=== PATIENT | male | born 1975 | race Hispanic/Latino ===

== ENCOUNTER 2022-07-19 09:53 | Emergency (ER) | payer OTHER, SELFPAY ==
[~2022-07-19 09:53] MED LIST: Iopamidol 370 76% 100 ML VIAL ONE
[2022-07-19 10:31] LABS: #Basophils 0.1 10x3/uL (0.0-0.2); #Eosinphils 0.1 10x3/uL (0.0-0.5); #Monocytes 0.5 10x3/uL (0.0-1.1); #Neutrophils 6.1 10x3/uL (1.5-8.4); %Basophils 1.2 % (0.0-2.0); %Eosinophils 1.4 % (0.0-6.0); %Lymphocytes 25.5 % (18.0-47.0); %Neutrophils 65.3 % (40.0-75.0); Hemoglobin 15.7 g/dL (13.5-17.5); Mean Corpuscular HGB CONC 35.2 g/dL (32.0-36.0); Mean Corpuscular Hemoglobin 31.3 pg (27.0-33.0); Mean Corpuscular Volume 88.8 fl (81.2-95.1); Mean Platelet Volume 9.4 fl (7.4-10.4); Platelet Count 230 10x3/uL (150-450); RBC Distribution Width 11.9 % (11.5-14.5); Red Blood Cell (RBC) Count 5.02 10x6/uL (4.32-5.72); White Blood Cell (WBC) Count 9.3 10x3/uL (3.5-10.5)
[2022-07-19 11:01] LABS: ALT (SGPT) 92 U/L (8-55); AST (SGOT) 165 U/L (5-34); Albumin 4.4 g/dL (3.5-5.0); Alkaline Phosphatase 72 U/L (40-110); Anion Gap 17 mmol/L (10-20); BUN (Urea Nitrogen) 7 mg/dL (8.9-20.6); Bilirubin, Total 0.5 mg/dL (0.2-1.2); Calc. Creatinine Clearance 0 mL/min (70-130); Calcium 8.8 mg/dL (7.8-10.44); Carbon Dioxide 16 mmol/L (22-29); Chloride 107 mmol/L (98-107); Estimated GFR 108; Globulin 3.5 g/dL (2.4-3.5); Glucose 207 mg/dL (70-105); Potassium 4.1 mmol/L (3.5-5.1); Protein, Total 7.9 g/dL (6.0-8.3); Sodium 136 mmol/L (136-145)
[2022-07-19] MEDS ORDERED: Morphine 4 MG/ML VIAL ONE (11:15)
[2022-07-19] MEDS ORDERED: Ondansetron PF 4 MG/2 ML Vial ONE (11:15)
[2022-07-19] MEDS ORDERED: Ketorolac Tromethamine 30 MG/ML VIAL ONE (11:45)
[2022-07-19 11:54] LABS: Bilirubin Neg (Negative); Blood, Urine 250 (Negative); Clarity Clear (Clear); Glucose, Urine (Dipstick) 250 mg/dL (Negative); Ketone, Urine Negative (Negative); Leukocyte Negative (Negative); Nitrite Negative (Negative); Protein, Urine (Dipstick) 30 mg/dl (Neg-Trace); Specific Gravity, Urine 1.015 (1.005-1.030); Urobilinogen Normal mg/dL (Less than 2)
[2022-07-19 12:11] LABS: RBC/HPF 0-3 HPF (0-3)
[2022-07-19 12:12] LABS: Bacteria/HPF 1+ HPF (None Seen); Mucous/LPF Rare LPF (<2+); Squamous Epithelial 0-3 HPF (0-3)
== END 2022-07-19 12:39 | disposition home or self-care (01) ==
LOC: CSHERS 09:53
DX: S70.12XA Contusion of left thigh, initial encounter (principal); S00.212A Abrasion of left eyelid and periocular area, initial encounter; S09.90XA Unspecified injury of head, initial encounter; M54.9 Dorsalgia, unspecified; R73.9 Hyperglycemia, unspecified; V69.40XA Driver of heavy transport vehicle injured in collision with unspecified motor vehicles in traffic accident, initial encounter
CPT/HCPCS: 36415; 70450; 70486; 71045; 71260; 72125; 72170; 74177; 80053; 81003; 81015; 85025; 93005; 96361; 96374; 96375; G0390; J1885; J2270; J2405; Q9967